=== PATIENT | male | born 1940 | race Caucasian/White ===

== ENCOUNTER 2017-05-12 20:11 | Inpatient (IN) | payer MEDICARE, BC ==
--- NOTE | ~2017-05-12 | DS ---
Unit #: [id number] #: [id number] Patient: SANA GOMEZ [id number] [address] [place], [place] [address] [id number] I MR#: [id number] NAME: SANA GOMEZ ROOM: 465 Age: 76 Sex: M Admission Date: 05/12/2017 : 1940 Discharge Date: 05/15/2017 Attending Physician: Jimmie Wright M.D. Primary Care Physician: Jose Mckinley D.O. DISCHARGE SUMMARY PRIMARY DIAGNOSIS Acute hypoxemic respiratory failure. SECONDARY DIAGNOSES 1. Community-acquired pneumonia. 2. Pulmonary fibrosis. 3. History of heart failure per family, ejection fraction 53% at outside facility in 04/2016. 4. Acute exacerbation of chronic obstructive pulmonary disease. 5. Tobacco abuse. 6. Restless legs syndrome. 7. Diarrhea, not otherwise specified. 8. Tachycardia. 9. Dyslipidemia. 10. Degenerative joint disease. 11. Glaucoma. 12. Hypertension. 13. Microscopic hematuria. HOSPITAL COURSE The patient was admitted with a large pneumonia and hypoxemic respiratory failure. He was noted on imaging to have continuing advancement of his historic pulmonary fibrosis and evidence of COPD on imaging as well. The patient is still using tobacco although he planned to quit. He clinically improved with Rocephin and Zithromax. He was seen in consultation with Dr. Jimmie Schroeder with Pulmonology while here in the hospital. He was also felt to have a possible acute exacerbation of COPD by pulmonology and was treated with steroids. The patient did note a complaint of diarrhea on 05/14/2017 and stool studies were ordered, which were negative and the patient's diarrhea was resolved within hours of his initial complaint. The stool studies were negative at the time of discharge. The patient does complain of a long history of restless legs when he lies down, but are improved by walking. A recommendation is made for iron supplementation as outpatient and the patient was started on low-dose Requip. The patient had issues with tachycardia partly due to the fact our home med list was incorrect and that apparently he uses 6.5 mg of Coreg, but takes 1-1/2 tablets twice a day. 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 DISCHARGE DISPOSITION Home with Home Health. DISCHARGE STATUS Stable. DISCHARGE ACTIVITY Ad aide. DISCHARGE DIET To resume his previous home diet. FOLLOWUP Follow up is with his primary care physician in 3 weeks; Dr. Pat, his mixing supervisor, in 2 weeks; Dr. Schroeder's nurse practitioner, in 1 to 2 weeks; and with Dr. Schroeder himself in 6 to 8 weeks with a followup chest x-ray. He will plan for outpatient pulmonary function testing and possibly repeat CT scan of his chest if needed. We will attempt to qualify the patient for home oxygen at the time of discharge at the recommendation of Dr. Schroeder. We will send him with home oxygen if he qualifies. DISCHARGE MEDICATIONS Celexa 20 mg p.o. q.a.m., Requip 0.25 mg p.o. q.h.s., Coreg 12.5 mg p.o. b.i.d., Lasix 40 mg p.o. q.a.m., latanoprost 2.5 mL both eyes q.h.s., Lipitor 20 mg p.o. q.h.s., fish oil 1000 mg p.o. q.h.s., Alphagan P one drop both eyes q.a.m., aspirin 81 mg p.o. q.h.s., Mobic 15 mg p.o. q.a.m., calcium with vitamin D 250 mg p.o. q.a.m., potassium chloride 10 mEq p.o. daily, azithromycin 500 mg p.o. daily for 4 days, prednisone 40 mg p.o. daily for 5 days, Ceftin 500 mg p.o. b.i.d. for 5 days, Symbicort 160, he is to take 2 puffs b.i.d. and albuterol either by ProAir inhaler or albuterol by mini nebulizer; if ProAir, the patient is take 2 puffs q.i.d. p.r.n. shortness of breath, if nebulizer, he is to use one vial q.i.d. p.r.n. for shortness of breath. He is given scripts for both of these by Dr. Schroeder. Dictated by... Jimmie Wright M.D. APOLINAR/gia TD: 05/20/2017 03:36 JOB #: [id number] DISCHARGE SUMMARY Page 1 of 1 X Jimmie Wright MD X DISCHARGE SUMMARY
--- NOTE | ~2017-05-12 | CR7 ---
[facility] A Service of [facility] & [facility] RADIOLOGY TEXT RESULTS PATIENT: SANA GOMEZ LOCATION: [facility] 465-01 : 41 UNIT #: [id number] AGE: [address]: Jimmie Wright MD SEX: M ORDER DR: [id number] [facility] [address] [facility]. [place], [place] [address] [id number] I MR#: [id number] Acc #: [id number] NAME: SANA GOMEZ : 1940 SEX: M STUDY DATE/TIME: 05/14/2017 10:28 UNIT: [facility] ROOM: [facility] STUDY DESCRIPTION: CR Abdomen Single AP View Attending Physician: Jimmie Wright M.D. Ordering Physician: Jimmie Wright M.D. Primary Care Physician: Jose Mckinley D.O. MEDICAL IMAGING REPORT This report is preliminary unless electronic signature is present EXAM Single-view abdomen HISTORY Abdominal pain and distension, onset today. FINDINGS Supine view of the abdomen demonstrates a normal nonobstructive bowel gas pattern. No abnormal masses or calcifications. No organomegaly. Degenerative changes of the lumbar spine. Lung bases unremarkable. IMPRESSION Unremarkable supine abdomen. Minimal gastric and colonic gas, but no findings to suggest high-grade obstruction or ileus. Dictated by... Salina Alvarez M.D. THIS IS AN ELECTRONICALLY VERIFIED REPORT Salina Alvarez M.D. at 05/15/2017 7:26 AM Stanislav TD: 05/14/2017 11:53 JOB #: [id number] MEDICAL IMAGING REPORT Page 1 of 1 COPY
--- NOTE | ~2017-05-12 | EKG ---
PATIENT: SANA GOMEZ UNIT #: [id number] Ventricular Rate: 138 BPM Atrial Rate: 138 BPM QRS Duration: 114 ms Q-T Interval: 322 ms QTC Calculation(Bezet): 487 ms Calculated R [place]: -4 degrees Calculated T [place]: 51 degrees Diagnosis Line: Undetermined rhythm Diagnosis Line: Low voltage QRS Diagnosis Line: Borderline ECG Diagnosis Line: When compared with ECG of 12-MAY-2017 20:15, Diagnosis Line: Current undetermined rhythm precludes rhythm Diagnosis Line: comparison, needs review Diagnosis Line: Confirmed by ANITHA GOLD MD ([id number]) on Diagnosis Line: 05/15/2017 7:58:45 AM INTERPRETING MD: ALLA VALLEJO
--- NOTE | ~2017-05-12 | CR72 ---
[facility] A Service of [facility] & [facility] RADIOLOGY TEXT RESULTS PATIENT: SANA GOMEZ LOCATION: [facility] 465-01 : 41 UNIT #: [id number] AGE: [address]: Jimmie Wright MD SEX: M ORDER DR: [id number] [address] [address] [id number] I MR#: [id number] Acc #: [id number] NAME: SANA GOMEZ : 1940 SEX: M STUDY DATE/TIME: 05/12/2017 20:33 UNIT: SEDOF ROOM: [facility] [place] STUDY DESCRIPTION: CR Chest Single View Portable Attending Physician: Desi Donohue M.D. Ordering Physician: Pineda Alonzo M.D. Primary Care Physician: Jose Mckinley D.O. MEDICAL IMAGING REPORT This report is preliminary unless electronic signature is present. EXAM Chest x-ray, portable, single view. HISTORY Short of air, sweating, dizziness, cough, congestion, getting worse for 3 days. COMPARISON Study is from 04/12/10 COMMENT Single frontal portable view of the chest time 20:33 05/12/17 is reviewed. There is mild cardiac silhouette enlargement. There is interval development of airspace disease most apparent peripherally in the right upper lobe laterally. Patchy airspace disease is likely right lower lung and possibly in the left lung peripherally. There is some prominence of the overlying soft tissue related to technical factors and the film is lordotic. Findings are more concerning for aspiration or pneumonia and congestive failure given peripheral distribution of the airspace disease. Clinical correlation and follow up is recommended to exclude underlying postobstructive process. Airspace disease should be followed to resolution. I would suggest correlation with 2-view chest x-ray. There is no obvious pneumothorax or pleural effusion at this time. IMPRESSION Abnormal film with development of airspace disease at least at the periphery of the right upper lobe laterally, possibly some patchy airspace disease right base, left base and left lung laterally. Distribution is most concerning for aspiration or pneumonia though followup to complete resolution is recommended to exclude postobstructive process or neoplastic disease. Peripheral distribution of airspace disease weighs against [facility] A Service of [facility] & [facility] RADIOLOGY TEXT RESULTS PATIENT: SANA GOMEZ LOCATION: [facility] 465-01 : 41 UNIT #: [id number] AGE: [address]: Jimmie Wright MD SEX: M ORDER DR: congestive failure. Mild cardiac silhouette enlargement is again seen. No pleural effusion or pneumothorax. The film is lordotic and the patient is best assessed further with 2-view followup film. Dictated by... Seda Rodriguez M.D. THIS IS AN ELECTRONICALLY VERIFIED REPORT Seda Rodriguez M.D. at 05/13/2017 4:11 PM DANE/renu TD: 05/13/2017 09:25 JOB #: [id number] MEDICAL IMAGING REPORT Page 1 of 1
--- NOTE | ~2017-05-12 | CR63 ---
[facility] A Service of [facility] & [facility] RADIOLOGY TEXT RESULTS PATIENT: SANA GOMEZ LOCATION: [facility] 465-01 : 41 UNIT #: [id number] AGE: [address]: Jimmie Wright MD SEX: M ORDER DR: [id number] [facility] [address] [facility]. [place], [place] [address] [id number] I MR#: [id number] Acc #: [id number] NAME: SANA GOMEZ : 1940 SEX: M STUDY DATE/TIME: 05/15/2017 7:22 UNIT: [facility] ROOM: [facility] STUDY DESCRIPTION: CR Chest 2 View Attending Physician: Jimmie Wright M.D. Ordering Physician: Jimmie Schroeder M.D. Primary Care Physician: Jose Mckinley D.O. MEDICAL IMAGING REPORT This report is preliminary unless electronic signature is present EXAM Chest, 05/15/2017, [facility]. HISTORY 76-year-old male short of air, abdominal pain, distension. History of pneumonia and COPD. Symptoms x2 weeks. COMPARISON 05/12/2017 with followup noncontrast chest CT 05/13/2017, portable chest 05/14/2017. FINDINGS AP portable chest demonstrates cardiomegaly with calcific plaquing noted in the thoracic aorta. Dense consolidation persists in the right upper lobe. There appears to be partial clearing of a previously noted infiltrate in the right lower lobe and stable to slightly improved infiltrate in the left upper lobe. Costophrenic angles are poorly defined, possibly related to body habitus only. The patient's prior CT demonstrated no effusion at the time. IMPRESSION Partial improvement of bilateral infiltrates consistent with multisegmental or multifocal pneumonia. Continued dense consolidation in the right upper lobe. Continued follow up to clearing as bronchoscopy may be an appropriate next step. Dictated by... Antwan Hawkins M.D. THIS IS AN ELECTRONICALLY VERIFIED REPORT Antwan Hawkins M.D. at 05/15/2017 12:09 PM [facility] A Service of [facility] & [facility] RADIOLOGY TEXT RESULTS PATIENT: SANA GOMEZ LOCATION: [facility] 465-01 : 41 UNIT #: [id number] AGE: [address]: Jimmie Wright MD SEX: M ORDER DR: NAKITA/karley TD: 05/15/2017 11:35 JOB #: [id number] MEDICAL IMAGING REPORT Page 1 of 1 COPY
--- NOTE | ~2017-05-12 | CR72 ---
[facility] A Service of [facility] & [facility] RADIOLOGY TEXT RESULTS PATIENT: SANA GOMEZ LOCATION: [facility] 465-01 : 41 UNIT #: [id number] AGE: [address]: Jimmie Wright MD SEX: M ORDER DR: [id number] [facility] [address] [facility]. [place], [place] [address] [id number] I MR#: [id number] Acc #: [id number] NAME: SANA GOMEZ : 1940 SEX: M STUDY DATE/TIME: 05/14/2017 10:30 UNIT: [facility] ROOM: [facility] STUDY DESCRIPTION: CR Chest Single View Portable Attending Physician: Jimmie Wright M.D. Ordering Physician: Jimmie Wright M.D. Primary Care Physician: Jose Mckinley D.O. MEDICAL IMAGING REPORT This report is preliminary unless electronic signature is present EXAM Portable chest HISTORY Shortness of air x1 week. History COPD. COMPARISON 05/12/2017 FINDINGS Portable view of the chest demonstrates increasing airspace opacities throughout both lungs most prominent within the right upper and right lower lungs. This could represent pulmonary edema or less likely multifocal pneumonia. No effusions. Continued cardiomegaly and diffuse aortic atherosclerotic changes. No invasive tubes or lines identified. No pneumothorax. Dictated by... Salina Alvarez M.D. THIS IS AN ELECTRONICALLY VERIFIED REPORT Salina Alvarez M.D. at 05/15/2017 7:26 AM Vilma TD: 05/14/2017 11:46 JOB #: [id number] MEDICAL IMAGING REPORT Page 1 of 1 COPY
--- NOTE | ~2017-05-12 | CT57 ---
[facility] A Service of [facility] & [facility] RADIOLOGY TEXT RESULTS PATIENT: SANA GOMEZ LOCATION: [facility] 465 : 41 UNIT #: [id number] AGE: [address]: Jimmie Wright MD SEX: M ORDER DR: [id number] [facility] [address] [place], [place] [address] [id number] I MR#: [id number] Acc #: [id number] NAME: SANA GOMEZ : 1940 SEX: M STUDY DATE/TIME: 05/13/2017 7:55 UNIT: [facility] ROOM: [facility] STUDY DESCRIPTION: CT Chest Wo Cont Attending Physician: Jimmie Wright M.D. Ordering Physician: Desi Donohue M.D. Primary Care Physician: Jose Mckinley D.O. MEDICAL IMAGING REPORT This report is preliminary unless electronic signature is present EXAM CT chest 05/13/2017. HISTORY Short of air, lightheaded, fever, chills since 05/09/2017, diagnosed pneumonia, 05/13/2017 at [facility]. Transferred here. TECHNIQUE CT chest performed without administration of intravascular contrast. This CT exam was performed with one or more of the following radiation dose reduction techniques: Automatic exposure control, adjustment of mA and/or kV according to patient size, and iterative reconstruction. COMPARISON Images from high-resolution CT 11/28/2011. FINDINGS Thyroid unremarkable. No axillary adenopathy. There are some mildly enlarged mediastinal nodes. There is a dominant subcarinal node measuring 1.3 cm in short axis. There are right paratracheal nodes measuring about 9 mm in short axis. Contour of the right hilum suggests some small right hilar lymph nodes. Given findings in the lungs, these nodes are favored to be reactive in nature. The heart is normal in size. There are coronary arterial calcifications. No pleural effusions. The visualized portions of liver are unremarkable. Uncomplicated cholelithiasis. Spleen, small accessory spleen, pancreas, adrenal glands and upper renal poles show no acute abnormality in their visualized extent. There are renovascular calcifications. Probable nonobstructing 3 mm mid to upper left renal calculus. No upper abdominal adenopathy. Esophagus unremarkable. Very small hiatal hernia. The visualized remainder of stomach, small bowel and colon unremarkable. Pulmonary parenchyma shows underlying emphysema. Interstitial fibrotic STS. [facility] A Service of [facility] & [facility] RADIOLOGY TEXT RESULTS PATIENT: SANA GOMEZ LOCATION: [facility] [address] : 41 UNIT #: [id number] AGE: [address]: Jimmie Wright MD SEX: M ORDER DR: change in the periphery of the lungs bilaterally. I believe this has progressed in the interval from 2012. There are some areas of developing honeycombing in the periphery of the bilateral upper and mid lung zones. There are some patchy densities in the bilateral dependent portions of the lungs similar to 2012 though slightly more pronounced. I would favor that these are largely a manifestation of progressive fibrotic change. Some component of associated atelectasis could be considered. There is dense airspace disease in the posterior aspect of the mid to inferior right upper lobe consistent with superimposed pneumonia. Followup to complete radiographic resolution is recommended. No focal suspicious nodule. Atherosclerotic arterial calcifications. Ectatic distal descending thoracic aorta measuring up to 3.8 cm in diameter. Slightly more pronounced than on prior study 2012 when it measured about 3.6 cm in diameter. The bony structures show degenerative change in spine. No acute-appearing bony abnormality. IMPRESSION 1. Extensive pneumonia in the right upper lobe involving its mid to inferior portions posterolaterally. Dense airspace disease in this region. Followup to complete radiographic resolution is recommended. 2. Underlying emphysema and pulmonary fibrosis. Please see complete dictation above for details. In comparison to the available most recent study of 2012, there has been progression of pulmonary fibrosis. I believe there is developing honeycombing in the periphery of upper and mid lung zones bilaterally. There are some patchy densities in the bilateral lower lobes. Similar to prior examination but slightly more pronounced. I favor that these reflect areas of progressive fibrotic change. Some component of associated atelectasis could be present. 3. No suspicious nodule. 4. Mediastinal and probable right hilar adenopathy. See energy conservation representative locations and sizes above. Favored to be reactive in nature given the right upper lobe pneumonia. Attention at followup recommended. 5. 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 6. Uncomplicated cholelithiasis. 7. Not mentioned in body of report above, indeterminate 1.2 cm focus hypodensity segment 6 of the liver. No change from 2012. Favored to be benign in etiology. 8. See remainder of findings in body of report above. Dictated by... Pineda Cerda M.D. THIS IS AN ELECTRONICALLY VERIFIED REPORT Pineda Cerda M.D. at 05/14/2017 4:47 PM RUTH/renu TD: 05/13/2017 13:47 [facility] A Service of [facility] & [facility] RADIOLOGY TEXT RESULTS PATIENT: SANA GOMEZ LOCATION: [facility] 465-01 : 41 UNIT #: [id number] AGE: [address]: Jimmie Wright MD SEX: M ORDER DR: JOSE #: [id number] MEDICAL IMAGING REPORT Page 1 of 1 COPY
--- NOTE | ~2017-05-12 | HP ---
Unit #: [id number] #: [id number] Patient: SANA GOMEZ [id number] [address] [place], [place] [address] [id number] MR#: [id number] NAME: SANA GOMEZ ROOM: 226 Age: 76 Sex: M Admission Date: 05/12/2017 : 1940 Attending Physician: Desi Donohue M.D. Primary Care Physician: Jose Mckinley D.O. HISTORY AND PHYSICAL CHIEF COMPLAINT Pneumonia. HISTORY OF PRESENT ILLNESS This pleasant 76-year-old male with pulmonary fibrosis, hypertension, unknown type of cardiac disease, was transferred to [facility] emergency department for pneumonia. The patient was well until three to four days prior to admission when he developed shortness of breath, some imbalance of lightheadedness associated with fevers and chills. He states that he did experience a nonproductive cough about two days ago which since has improved with perhaps some mild wheezing. He went to [facility] last evening where a chest x-ray shows a right-sided infiltrate. Lactic acid level was borderline and the patient was noted to have a temperature of 101. He was bolused with a liter of saline, given Tylenol, one gram of Rocephin and 500 mg of Zithromax. The patient denies history of aspiration. He was smoking one pack per day of tobacco from age 16 until one month ago when he stopped. PAST MEDICAL HISTORY 1. Pulmonary fibrosis previously treated by Dr. Lamine Cedeno. 2. Hyperlipidemia. 3. Essential hypertension. 4. DJD. 5. Glaucoma. 6. Unknown type of cardiac disease requiring admission to [facility] last year. 7. The patient states it was for a heart murmur but I do see that he used to take amiodarone and will obtain records. 8. Negative colonoscopy 06/2006. SOCIAL HISTORY The patient lives with his . He smoked one pack per day of tobacco from age 16 until a month ago when he stopped smoking. He does not drink alcohol. FAMILY HISTORY Negative for lung or heart disease. ALLERGIES No known drug allergies. HOME MEDICATIONS Unit #: [id number] #: [id number] Patient: MANFORD,SANA 1. Coreg 6.25 mg b.i.d. 2. Lasix 40 mg q.a.m. 3. Potassium 10 mEq daily. 4. Lipitor 20 mg q.h.s. 5. Celexa 20 mg q.a.m. 6. Mobic 15 mg daily. 7. Aspirin 81 mg daily. 8. Fish oil one gram q.h.s. 9. Calcium plus D 250 mg q.a.m. 10. Alphagan one drop both eyes q.a.m. 11. Latanoprost one drop both eyes q.h.s. REVIEW OF SYSTEMS Notable for shortness of breath, cough, fever, sweats, chills, pulmonary fibrosis, hyperlipidemia, hypertension, DJD, cardiac disease, glaucoma. All other systems were reviewed and otherwise negative. PHYSICAL EXAMINATION GENERAL APPEARANCE: A pleasant, 76-year-old male who currently is in no acute distress. VITAL SIGNS: Temperature was as high as 101, pulse 100, respirations 24, blood pressure 170/85, although last blood pressure was 141/79. O2 saturation was 95% on room air. Weight 214 lb with a BMI of 34. HEENT: Eyes: PERRLA. Extraocular muscles are intact. Pharynx is benign. NECK: Supple without adenopathy or thyromegaly. CHEST: Reveals crackles at the bases bilaterally, more at the right base than the left. CARDIAC: Normal S1, S2 without S3, S4 or murmur. ABDOMEN: Bowel sounds are present. No hepatosplenomegaly, tenderness or masses. EXTREMITIES: Without clubbing, cyanosis or edema. Pedal pulses are diminished. NEUROLOGIC: The patient is awake, alert, oriented. Cranial nerves are intact. Equal strength throughout. DIAGNOSTIC STUDIES LABORATORY: Hematocrit 45.7, normal white count, platelet count. Normal coags. SMA-12: Glucose 150, BUN 24. BNP 314. Lactic acid 2. Alcohol level less than 5. Cardiac markers are negative. Urinalysis: 2+ protein, 3+ ketones, 3+ blood with 10 to 25 red cells, 2 to 5 white cells, 1+ bacteria. IMAGING: Chest x-ray: An extensive right-sided infiltrate, mild cardiomegaly. CARDIOVASCULAR: Sinus tachycardia, rate 102 with occasional PVCs noted. ASSESSMENT 1. Community-acquired pneumonia. 2. History of pulmonary fibrosis and likely COPD. 3. History of cardiac disease on certain diagnosis. We will obtain records from [facility]. 4. Essential hypertension. 5. Hyperlipidemia. 6. DJD. 7. Glaucoma. PLAN Unit #: [id number] #: [id number] Patient: SANA GOMEZ 1. Request old records. 2. Continue Rocephin and Zithromax for now and order Xopenex mini nebs along with mucolytics. We will obtain a CT scan without contrast given the extensiveness of patient's infiltrates on the right and ask Pulmonary to also see in the morning. 3. DVT prophylaxis. 4. We will move to a monitored bed when available. Dictated by Desi Donohue M.D. AML/bd TD: 05/13/2017 06:37 JOB #: [id number] HISTORY AND PHYSICAL Page 1 of 1 X Desi Donohue MD X HISTORY AND PHYSICAL
--- NOTE | ~2017-05-12 | EKG ---
PATIENT: SANA GOMEZ UNIT #: [id number] Ventricular Rate: 102 BPM Atrial Rate: 102 BPM P-R Interval: 182 ms QRS Duration: 110 ms Q-T Interval: 368 ms QTC Calculation(Bezet): 479 ms P [place]: 49 degrees Calculated R [place]: 2 degrees Calculated T [place]: 54 degrees Diagnosis Line: Sinus tachycardia with Possible Premature atrial Diagnosis Line: complexes with Aberrant conduction Diagnosis Line: Low voltage QRS Diagnosis Line: Borderline ECG Diagnosis Line: No previous ECGs available Diagnosis Line: Confirmed by ANITHA GOLD MD ([id number]) on Diagnosis Line: 05/13/2017 3:52:02 PM INTERPRETING MD: ALLA VALLEJO
--- NOTE | ~2017-05-12 | CO ---
Unit #: [id number] #: [id number] Patient: SANA GOMEZ [id number] [address] [place], [place] [address] [id number] MR#: [id number] NAME: SANA GOMEZ ROOM: 465 Age: 76 Sex: M Admission Date: 05/12/2017 : 1940 Attending Physician: Jimmie Wright M.D. Primary Care Physician: Jose Mckinley D.O. Consultation Date: 05/13/2017 CONSULTATION REPORT REASON FOR CONSULTATION Pneumonia. HISTORY OF PRESENT ILLNESS This 76-year-old gentleman, followed by Dr. Cedeno, has a history of pulmonary fibrosis. He was an active tobacco smoker up until one to two weeks ago. He had a two-day history of increased shortness of breath, dizziness. He also had some nausea and vomiting but definite aspiration. Workup in the emergency room included radiographs suggestive of pneumonia. He was admitted, placed on antibiotics. He denies sputum production. No hemoptysis. No chest pain. There was a sensation of chilling at home but no documented fever. He denied chest pain of pleurisy. Of note, he did have temperature to 101 upon presentation here. PAST MEDICAL HISTORY 1. Pulmonary fibrosis. 2. Hypertension. 3. Some type of ill-defined cardiac disease. 4. Hyperlipidemia. 5. Arthritis. HOME MEDICATIONS He is on no inhaled medications. He does not have oxygen at home. According to the EHR, he is on: 1. Coreg. 2. Lasix. 3. Potassium. 4. Lipitor. 5. Celexa. 6. Mobic. 7. Aspirin. 8. Some eye drops. ALLERGIES No known medical allergies. SOCIAL HISTORY He quit smoking one to two weeks ago. When I asked him why he quit, he says "its about time." FAMILY HISTORY No familial lung disease. REVIEW OF SYSTEMS Unit #: [id number] #: [id number] Patient: SANA GOMEZ Denies chest pain, palpitations, abdominal pain, melena, hematochezia, hematuria, dysuria. He did have some nausea, vomiting yesterday and today. No diarrhea. No leg pain, swelling. He feels that his shortness of breath is stable over the last six months. Further review of systems negative. PHYSICAL EXAMINATION GENERAL: Reveals a pleasant gentleman sitting up in the chair, nontoxic on 2 L of oxygen. VITAL SIGNS: He had a T-max of 101, pulse 79, respiratory rate 25, blood pressure 139/79. Height 5 foot 6 inches, weight 214. BMI is 34. HEENT: Pupils equal, round, and reactive to light. Sclerae anicteric. Head atraumatic. Mucous membranes moist. He has teeth and borderline dentition. NECK: Supple. No supraclavicular or cervical adenopathy appreciated. CHEST: Crackles at the bases. No consolidation. No wheeze. CARDIAC: Reveals a regular rate and rhythm. Soft murmur. No gallop. ABDOMEN: Soft, nontender. No hepatomegaly or rebound. EXTREMITIES: Reveal no clubbing, cyanosis, or edema. No calf tenderness. Decreased hair. Decreased pulses. SKIN: Warm and dry without rash or diaphoresis. NEUROLOGIC: Grossly intact. No focal muscle or sensory deficits. DIAGNOSTIC STUDIES LABORATORY: BUN is 18, creatinine 1. BNP 314. Lactic acid is 1.4. INR negative. Cardiac enzymes negative. White blood cell count 10.8, hemoglobin 14.4, platelet count 126,000. Urinalysis: Proteinuria, hematuria. No definite pyuria. Blood cultures and urine cultures pending. IMAGING: Chest x-ray: Right upper lobe infiltrate. CT scan: Pneumonia, fibrosis, and emphysema. Formal report pending. CARDIOVASCULAR: EKG: Sinus tachycardia, PVC. IMPRESSION 1. Abnormal CT scan consistent with pneumonia. 2. Emphysema. 3. Fibrosis. 4. Recent tobacco cessation. 5. Possible history of heart disease, nausea, vomiting, possible viral enteritis. PLAN Agree with antibiotics. Will check urinary streptococcal and legionella antigens. Followup cultures, adjust antibiotics as needed. Will check room air oxygenation needs at discharge. He may benefit from some type of controlling agent at discharge. Once recovered from his pneumonia in approximately two months, he may benefit from repeat CAT scan. Long-term evaluation and treatment for his pulmonary fibrosis as per Dr. Cedeno. Thank you very much for allowing me to participate in the care of Mr. Gomez. Dictated by... Unit #: [id number] #: [id number] Patient: SANA GOMEZ Jimmie Schroeder M.D. JI/cortes TD: 05/13/2017 15:59 JOB #: [id number] CONSULTATION REPORT Page 1 of 1 X Jimmie Schroeder MD CONSULTATION REPORT
[~2017-05-12 20:11] MED LIST: ACETAMINOPHEN PO; ASPIRIN81 M1 PO; CALCIUM + D 6001 TA1 PO; CENTRUM SILVER PO; EXFORGE HCT 101 EACH PO; WELCHOL625 MG PO
[2017-05-12] MEDS ORDERED: COREG12.5 MG PO (20:30)
[2017-05-12] MEDS ORDERED: LASIX PO (20:30)
[2017-05-12] MEDS ORDERED: CELEXA20 MG PO (20:31)
[2017-05-12] MEDS ORDERED: MOBIC15 MG PO (20:31)
[2017-05-12] MEDS ORDERED: LIPITOR20 MG PO (20:31)
[2017-05-12] MEDS ORDERED: POTASSIUM CHLO20 ME1 PO (20:31)
[2017-05-12] MEDS ORDERED: ST JOSEPH ASPIR81 M1 PO (20:32)
[2017-05-12] MEDS ORDERED: FISH OIL 1,0001 EAC4 PO (20:32)
[2017-05-12] MEDS ORDERED: CALCIUM 500 +1 EAC1 PO (20:33)
[2017-05-12] MEDS ORDERED: ALPHAGAN P5 ML OU (20:33)
[2017-05-12] MEDS ORDERED: LATANOPROST2.5 ML OU (20:34)
[2017-05-12 20:44] LABS: BASOPHIL% 0.2 % (0-2.5); HEMATOCRIT 45.7 % (38.0-50.0); HEMOGLOBIN 15.4 gm/dL (13.0-16.0); LYMPHOCYTE# 0.9 X10e3 (1.0-3.5); MEAN CELL VOLUME 93.3 FL (83-96); MEAN CORPUSCULAR HEMOGLOBIN 31.5 PG (28-34); MEAN CORPUSCULAR HGB CONC 33.8 g/dL (30-36); MEAN PLATELET VOLUME 10.1 FL (6.5-11.5); MONOCYTE# 0.7 X10e3 (0-1.0); MONOCYTE% 6.8 % (3.0-12.0); NEUTROPHIL# 8.6 X10e3 (1.5-7.1); PLATELET COUNT 143 X10e3 (140-420); RED CELL DISTRIBUTION WIDTH 13.4 % (11.0-15.5); WHITE BLOOD COUNT 10.3 X10e3 (4.0-10.5)
[2017-05-12 20:45] LABS: DIFF IND NO
[2017-05-12 20:49] LABS: INR 1.3; PROTHROMBIN TIME (PATIENT) 14.3 SECONDS (9.5-12.4)
[2017-05-12 20:50] LABS: POC - CKMB 1.1 ng/mL (0.0-7.9); POC - TROPONIN <0.05 ng/mL (<=0.05)
[2017-05-12 20:55] LABS: ALBUMIN SERUM 3.6 g/dL (3.5-5.0); BILIRUBIN, DIRECT 0.2 mg/dL (0.0-0.2); BILIRUBIN,INDIRECT 0.9 mg/dL (0.0-0.9); BILIRUBIN,TOTAL 1.1 mg/dL (0.2-2.0); BUN/CREATININE RATIO 21.81; CALCIUM SERUM 8.4 mg/dL (8.4-10.2); CREATININE SERUM 1.1 mg/dL (0.6-1.4); GLOM FILT RATE Estimated 65.3 mL/min (>60); PROTEIN TOTAL SERUM 7.1 g/dL (6.0-8.3)
[2017-05-12 21:41] LABS: URINE SOURCE CLEAN CATCH
[2017-05-12 21:43] LABS: URINE APPEARANCE CLEAR; URINE BILIRUBIN NEG (NEG); URINE BLOOD 3+ (NEG); URINE COLOR YELLOW; URINE GLUCOSE NEG (NORM); URINE LEUKOCYTE ESTERASE NEG (NEG); URINE NITRATE NEG (NEG); URINE PH 6.5 (5-8); URINE PROTEIN 2+ (NEG)
[2017-05-12 21:49] LABS: MICRO INDICATED? YES; URINE KETONE 3+ (NEG)
[2017-05-12 21:50] LABS: CULTURE INDICATED? YES; URINE BACTERIA 1+ (NEG); URINE MUCUS PRESENT; URINE SQUAMOUS EPITHELIAL CELL FEW /[HPF]
[2017-05-13 06:53] LABS: BASOPHIL# 0.1 X10e3 (0-0.3); BASOPHIL% 0.5 % (0-2.5); EOSINOPHIL% 0.1 % (0.0-7.0); HEMATOCRIT 43.7 % (38.0-50.0); HEMOGLOBIN 14.4 gm/dL (13.0-16.0); LYMPHOCYTE# 1.1 X10e3 (1.0-3.5); LYMPHOCYTE% 9.9 % (17.0-45.0); MEAN CELL VOLUME 94.5 FL (83-96); MEAN CORPUSCULAR HEMOGLOBIN 31.1 PG (28-34); MEAN CORPUSCULAR HGB CONC 32.9 g/dL (30-36); MEAN PLATELET VOLUME 9.7 FL (6.5-11.5); MONOCYTE# 0.8 X10e3 (0-1.0); NEUTROPHIL% 82.5 % (40-75); PLATELET COUNT 126 X10e3 (140-420); RED BLOOD COUNT 4.62 X10e (3.90-5.60); RED CELL DISTRIBUTION WIDTH 13.2 % (11.0-15.5); WHITE BLOOD COUNT 10.8 X10e3 (4.0-10.5)
[2017-05-13 06:55] LABS: DIFF IND NO
[2017-05-13 07:24] LABS: CALCIUM SERUM 8.2 mg/dL (8.4-10.2); GLOM FILT RATE Estimated 73.3 mL/min (>60); POTASSIUM 4.2 mmol/L (3.5-5.1)
[2017-05-13 07:44] LABS: %MB 0.8 % (0.0-4.0); MB 1.7 ng/ml
[2017-05-13 15:16] LABS: URINE APPEARANCE CLEAR; URINE BILIRUBIN NEG (NEG); URINE BLOOD 3+ (NEG); URINE COLOR YELLOW; URINE GLUCOSE NEG (NEG); URINE KETONE NEG (NEG); URINE LEUKOCYTE ESTERASE NEG (NEG); URINE NITRATE NEG (NEG); URINE PROTEIN NEG (NEG); URINE UROBILINOGEN 0.2 MG/DL (NEG)
[2017-05-13 15:20] LABS: URBCS1 AUWI 25-50 /[HPF] (0-2); URINE BACTERIA AUWI NEG (NEGATIVE); URINE SQUAMOUS EPITHELIAL CELL NONE SEEN /[HPF]
[2017-05-13 15:23] LABS: URINE SOURCE CLEAN CATCH
[2017-05-14 03:53] LABS: HEMATOCRIT 43.1 % (38.0-50.0); HEMOGLOBIN 14.3 gm/dL (13.0-16.0); MEAN CELL VOLUME 93.5 FL (83-96); MEAN CORPUSCULAR HEMOGLOBIN 30.9 PG (28-34); MEAN CORPUSCULAR HGB CONC 33.1 g/dL (30-36); MEAN PLATELET VOLUME 9.5 FL (6.5-11.5); RED BLOOD COUNT 4.62 X10e (3.90-5.60); RED CELL DISTRIBUTION WIDTH 13.5 % (11.0-15.5)
[2017-05-14 04:18] LABS: CALCIUM SERUM 7.9 mg/dL (8.4-10.2); GLOM FILT RATE Estimated 73.3 mL/min (>60); POTASSIUM 3.5 mmol/L (3.5-5.1)
[2017-05-15 03:02] LABS: HEMATOCRIT 45.9 % (38.0-50.0); HEMOGLOBIN 15.3 gm/dL (13.0-16.0); MEAN CELL VOLUME 92.8 FL (83-96); MEAN CORPUSCULAR HEMOGLOBIN 30.8 PG (28-34); MEAN CORPUSCULAR HGB CONC 33.2 g/dL (30-36); MEAN PLATELET VOLUME 9.4 FL (6.5-11.5); RED BLOOD COUNT 4.95 X10e (3.90-5.60); RED CELL DISTRIBUTION WIDTH 13.6 % (11.0-15.5); WHITE BLOOD COUNT 11.3 X10e3 (4.0-10.5)
[2017-05-15 03:45] LABS: BUN/CREATININE RATIO 19.09; CALCIUM SERUM 8.3 mg/dL (8.4-10.2); CREATININE SERUM 1.1 mg/dL (0.6-1.4); GLOM FILT RATE Estimated 65.3 mL/min (>60); POTASSIUM 3.7 mmol/L (3.5-5.1)
[2017-05-15] MEDS ORDERED: REQUIP0.25 MG PO (13:30)
[2017-05-15] MEDS ORDERED: CEFTIN PO (13:32)
[2017-05-15] MEDS ORDERED: DELTASONE20 MG PO (13:32)
[2017-05-15] MEDS ORDERED: ALBUTEROL 0.5ML INH (13:37)
[2017-05-15] MEDS ORDERED: SYMBICORT 160/4.6 G1 INH (13:39)
[2017-05-15] MEDS ORDERED: PROAIR HFA8.5 GM INH (13:40)
[2017-05-15] MEDS ORDERED: ZITHROMAX500 MG PO (13:43)
== END 2017-05-15 15:50 | disposition home health service (06) | DRG 190 ==
LOC: SED 20:11 → C2A 21:57 → SED 21:57 → SEDOF 21:57 → C4C 22:08 → SEDOF 22:08 → C2A 22:08 → C4C 05-13 08:00
PROVIDERS: Emergency Medicine; Internal Medicine
DX: J44.0 Chronic obstructive pulmonary disease with (acute) lower respiratory infection (principal); J18.9 Pneumonia, unspecified organism; J96.01 Acute respiratory failure with hypoxia; J84.10 Pulmonary fibrosis, unspecified; I50.9 Heart failure, unspecified; E78.5 Hyperlipidemia, unspecified; H40.9 Unspecified glaucoma; Z79.82 Long term (current) use of aspirin; R19.7 Diarrhea, unspecified; I51.9 Heart disease, unspecified; M19.90 Unspecified osteoarthritis, unspecified site; F17.210 Nicotine dependence, cigarettes, uncomplicated; I10 Essential (primary) hypertension
CPT/HCPCS: 36415; 71010; 71020; 71250; 74000; 80048; 80076; 81003; 82550; 82553; 83605; 83880; 84484; 85025; 85027; 85610; 85730; 87040; 87045; 87086; 87427; 87449; 87493; 87899; 93005; 94640; 94664; 94760; 96365; 96375; 99285; G0480; J0456; J0696; J1650; J1940; J2405; J2550; J2920